=== PATIENT | male | born 1975 | race Caucasian/White ===

== ENCOUNTER 2017-07-22 10:44 | Emergency (ER) | payer OTHER ==
[2017-07-22 11:58] LABS: ADD MAN DIFF? NO
[2017-07-22] MEDS: SOD CHLORIDE 0.9% 1,000 ML IV (12:04)
[2017-07-22 12:11] LABS: WHITE BLOOD COUNT 8.1 10^3/ul (4.8-10.8)
[2017-07-22 12:11] LABS: BASOPHILS % 0.4 % (0.0-2.0); EOSINOPHILS % 0.2 % (0.0-7.0); HEMATOCRIT 49.6 % (42.0-52.0); HEMOGLOBIN 16.4 g/dl (14.0-18.0); LYMPHOCYTES # 1.2 10^3/ul (0.8-2.9); LYMPHOCYTES % 14.6 % (15.0-51.0); MEAN CORPUSCULAR HEMOGLOBIN 29.3 pg (29.0-33.0); MEAN CORPUSCULAR HGB CONC 33.1 g/dl (32.0-37.0); MEAN CORPUSCULAR VOLUME 88.6 fl (82.0-101.0); MEAN PLATELET VOLUME 9.3 fl (7.4-10.4); MONOCYTE # 0.3 10^3/ul (0.3-0.9); NEUTROPHIL # 6.5 10^3/ul (1.6-7.5); NEUTROPHILS % 80.4 % (39.0-77.0); PLATELET COUNT 304 10^3/UL (140-415); RED CELL DISTRIBUTION WIDTH 12.6 % (11.5-14.5)
[2017-07-22 12:28] LABS: AMMONIA 10 umol/l (9-30)
[2017-07-22 12:30] LABS: ALANINE AMINOTRANSFERASE 58 IU/L (13-69); ALBUMIN 4.7 g/dl (3.3-4.9); ALBUMIN/GLOBULIN RATIO 1.56; ALKALINE PHOSPHATASE 101 IU/L (42-121); ANION GAP 13 (8-16); ASPARTATE AMINO TRANSFERASE 35 IU/L (15-46); BILIRUBIN,INDIRECT 0.3 mg/dl (0-1.1); BILIRUBIN,TOTAL 0.3 mg/dl (0.2-1.3); BLOOD UREA NITROGEN 14 mg/dl (7-20); CALCIUM 9.9 mg/dl (8.4-10.2); CARBON DIOXIDE 29 mmol/L (21-31); CHLORIDE 104 mmol/L (97-110); CREATININE 0.78 mg/dl (0.61-1.24); GLUCOSE 115 mg/dl (70-220); POTASSIUM 3.9 mmol/L (3.5-5.1); SODIUM 142 mmol/L (135-144); TOTAL PROTEIN 7.7 g/dl (6.1-8.1)
[2017-07-22 12:39] LABS: ACETAMINOPHEN < 10.0 ug/ml (10.0-30.0); ETHANOL < 10.0 mg/dl; SALICYLATE < 1.0 mg/dl (5.0-30.0)
[2017-07-22 12:44] LABS: TROPONIN-I < 0.012 ng/ml (0.00-0.12)
[2017-07-22 12:57] LABS: ADD UMIC NO; UR ASCORBIC ACID NEGATIVE (NEGATIVE); UR BILIRUBIN (Dip) NEGATIVE (NEGATIVE); UR BLOOD (Dip) NEGATIVE (NEGATIVE); UR CLARITY CLEAR (CLEAR); UR COLOR YELLOW (YELLOW); UR GLUCOSE (Dip) NEGATIVE (NEGATIVE); UR KETONES (Dip) NEGATIVE (NEGATIVE); UR LEUKOCYTE ESTERASE (Dip) NEGATIVE Leu/ul (NEGATIVE); UR NITRITE (Dip) NEGATIVE (NEGATIVE); UR SPECIFIC GRAVITY (Dip) 1.018 (1.003-1.030); UR TOTAL PROTEIN (Dip) NEGATIVE (NEGATIVE); UR UROBILINOGEN (Dip) NEGATIVE (NEGATIVE)
[2017-07-22 13:14] LABS: AMPHETAMINE/METHAMPHETAMINE Negative (NEGATIVE); BARBITURATES Negative (NEGATIVE); BENZODIAZEPINES Negative (NEGATIVE); CANNABINOIDS Negative (NEGATIVE); COCAINE Negative (NEGATIVE); OPIATES Negative (NEGATIVE)
[2017-07-22 13:26] LABS: FREE THYROXINE INDEX (Calc) 3.04 ug/ml (0.65-3.89)
[2017-07-22 13:29] LABS: T3 UPTAKE 34.9 % (23.5-40.5); T4 (THYROXINE) 8.7 ug/dl (5.5-11.0)
== END 2017-07-22 14:04 | disposition home or self-care (01) ==
LOC: E/R 10:44
DX: R41.82 Altered mental status, unspecified (principal); F41.9 Anxiety disorder, unspecified; R07.9 Chest pain, unspecified
CPT/HCPCS: 36415; 70450; 71045; 80053; 80306; 80307; 81003; 82140; 82962; 84436; 84479; 84484; 85025; 99285-25